=== PATIENT | female | born 1960 | race Caucasian/White ===

== ENCOUNTER 2018-03-18 01:49 | Emergency (ER) | payer BC ==
[~2018-03-18] VITALS: Ht 160 cm; Wt 100.2 kg
[2018-03-18 02:11] VITALS: BP 145/78
--- NOTE | 2018-03-18 02:16 | Emergency Room Report ---
History of Present Illness General Chief Complaint: Laceration Source: Patient Present Illness HPI Pt. stepped on glass six days ago and it has been difficult to walk. She is improving and now can walk. No fever. No other injury. Allergies: Coded Allergies: No Known Allergies (Unverified , 03/18/18) Patient History Now: No Nursing Documentation-[facility] Past Medical History: No Stated History Review of Systems Musculoskeletal: Reports: see HPI All Other Systems: limited Physical Exam Vital Signs Date Time Temp Pulse Resp B/P (MAP) Pulse Ox O2 Delivery O2 Flow Rate FiO2 03/18/18 02:04 97.8 85 18 145/78 98 Room Air 97.9 General Appearance: well appearing, no apparent distress Head: normocephalic, atraumatic ENT: hearing grossly normal, normal voice Neck: full range of motion, supple Respiratory: no respiratory distress, speaking full sentences Musculoskeletal: other - right foot: there is some missing skin, plantar surface right fifth metatarsal Neurologic: alert, normal gait Psychiatric: mood/affect normal Skin: no rash Medical Decision Making Diagnostic Impression: Primary Impression: Laceration ER Course healing, no signs of cellulitis encouraged to soak 10 minutes warm/hot water 2x/day OK to return to work Last Vital Signs Date Time Temp Pulse Resp B/P (MAP) Pulse Ox O2 Delivery O2 Flow Rate FiO2 03/18/18 02:04 97.8 85 18 145/78 98 Room Air 97.9 Status: unchanged Disposition: HOME, SELF-CARE Patient Instructions: Nonsutured Laceration Care Noe Fraire M.D. Mar 18, 2018 02:16
[2018-03-18 03:02] VITALS: BP 145/78
== END 2018-03-18 03:02 | disposition home or self-care (01) ==
LOC: EMR 02:15
DX: S91.311A Laceration without foreign body, right foot, initial encounter (principal); W22.8XXA Striking against or struck by other objects, initial encounter; Y93.89 Activity, other specified; Y92.9 Unspecified place or not applicable
CPT/HCPCS: 99282

== ENCOUNTER 2018-12-23 03:26 | Emergency (ER) | payer BC ==
[~2018-12-23] VITALS: Ht 160 cm; Wt 113.4 kg
[2018-12-23 03:38] VITALS: BP 149/84
--- NOTE | 2018-12-23 03:40 | NUR ---
ED Nurse Note: Pt walkd in c/o meniere's disease episode, pt states she had it for about three wks, initially had nausea, vomiting, and dizziness with earache, pt states the episode is at the end, denies pain at this time. vss, ambulatory w/ steady gait, will cont monitor.
[2018-12-23] MEDS ORDERED: HYDROCHLOROTHIA25 MG ORAL (03:49)
--- NOTE | 2018-12-23 03:49 | Emergency Room Report ---
History of Present Illness General Chief Complaint: Earache Source: Patient Present Illness HPI Is a 58-year-old female with a history of Mnire's disease. This is a infrequent attack. She had tach that was very severe. Is incapacitated her for about a month. Localized to the right ear. She felt like fullness in her ear and make her very dizzy. She felt better now. She came in for recheck and clearance for work. She denies any fever chills but no nausea no vomiting. She said the last year her blood pressure been running systolic 140s. Allergies: Coded Allergies: No Known Allergies (Unverified , 03/18/18) Patient History Past Medical History: see triage record, old chart reviewed Past Surgical History: none Pertinent Family History: none Social History: Denies: smoking Now: No : 2 Para: 2 Immunizations: other Reviewed Nursing Documentation: PMH: Agreed; PSxH: Agreed Nursing Documentation-PMH Past Medical History: No History, Except For Hx Asthma: Yes Hx Neurological Problems: No - Meniere's disease Review of Systems Eye: Denies: eye pain, blurred vision ENT: Denies: ear pain, nose congestion, throat swelling Respiratory: Denies: cough, shortness of breath Cardiovascular: Denies: chest pain, palpitations Gastrointestinal: Denies: abdominal pain, diarrhea, nausea, vomiting Musculoskeletal: Denies: back pain, joint pain Skin: Denies: rash Neurological: Denies: headache, numbness Endocrine: Denies: increased thirst, increased urine Hematologic/Lymphatic: Denies: easy bruising All Other Systems: negative except mentioned in HPI Physical Exam Vital Signs Date Time Temp Pulse Resp B/P (MAP) Pulse Ox O2 Delivery O2 Flow Rate FiO2 12/23/18 03:28 98.1 72 18 149/84 (105) 96 Room Air Vitals with high blood pressure Sp02 EP Interpretation: reviewed, normal General Appearance: well appearing, no apparent distress, alert Head: normocephalic, atraumatic Eyes: bilateral eye PERRL, bilateral eye EOMI ENT: hearing grossly normal, normal pharynx Neck: full range of motion, supple, no meningismus Respiratory: chest non-tender, lungs clear, normal breath sounds Cardiovascular #1: regular rate, rhythm, no murmur Gastrointestinal: normal bowel sounds, non tender, no mass, no organomegaly, no bruit, non-distended Musculoskeletal: back normal, gait/station normal, normal range of motion Psychiatric: mood/affect normal Medical Decision Making Diagnostic Impression: Primary Impression: Meniere's disease Qualified Codes: H81.01 - Meniere's disease, right ear Additional Impression: Hypertension Qualified Codes: I10 - Essential (primary) hypertension ER Course This patient presents with Mnire's disease which improved greatly already. She cleared to go back to work. Her blood pressure been persistent in the 140 systolic for the last year. We will go ahead and put her on antihypertensive medication. Will discharge home. Last Vital Signs Date Time Temp Pulse Resp B/P (MAP) Pulse Ox O2 Delivery O2 Flow Rate FiO2 12/23/18 03:38 98.1 95 18 149/84 96 Room Air Status: unchanged Disposition: HOME, SELF-CARE Condition: Stable Scripts Hydrochlorothiazide* (HYDROCHLOROTHIAZIDE*) 25 Mg Tablet 25 MG ORAL DAILY, #90 TAB Prov: Ezra Smallwood MD 12/23/18 Referrals: NOT CHOSEN IPA/,REFERRING (PCP) Additional Instructions: Follow up with your doctor in 7 days. Return if symptoms worsen. Ezra Smallwood MD Dec 23, 2018 03:49
--- NOTE | 2018-12-23 03:56 | NUR ---
ED Nurse Note: pt cleared to be d/c per ERMD, pt discharge and aftercare instruction provided w/ prescription, pt advised to follow up with pcp or return to ed if changes in condition, vss, ambulatory w/ steady gait, left w/ all belongings.
[2018-12-23 03:57] VITALS: BP 149/84
== END 2018-12-23 03:57 | disposition home or self-care (01) ==
LOC: EMR 03:39
DX: H81.01 Meniere's disease, right ear (principal); I10 Essential (primary) hypertension
CPT/HCPCS: 99282

== ENCOUNTER 2019-05-26 01:45 | Emergency (ER) | payer BC ==
[~2019-05-26] VITALS: Ht 162.6 cm; Wt 108.9 kg
[~2019-05-26 01:45] MED LIST: HYDROCHLOROTHIA25 MG ORAL
[2019-05-26 02:07] VITALS: BP 135/52
--- NOTE | 2019-05-26 02:13 | Emergency Room Report ---
History of Present Illness General Chief Complaint: Allergic Reaction Source: Patient Present Illness HPI Disclaimer: Please note that this report is being documented using [employer] technology. This can lead to erroneous entry secondary to incorrect interpretation by the dictating instrument. HPI: 51-year-old female with a history of hypertension presents for evaluation of rash. 4 days ago the patient was switched from hydrochlorothiazide to triamterene-HCTZ combo by her PMD. Over the past 2 days she has had a diffuse pruritic rash over her abdomen and now spreading to the legs. Also complains of pain and hypersensitivity to the skin when her clothes touch. Denies shortness of breath, wheezing, vomiting, diarrhea. Notes worsening swelling of the lower extremities since being switched from hydrochlorothiazide. Denies chest pain. Denies skin breakdown, bruising, bleeding. No other exposures or recent changes in detergents, clothes, cleaning products. PMH: Hypertension, hyperlipidemia, obesity, hypothyroidism PSH: Total knee replacement, gastric sleeve Allergies: No known allergens Social Hx: Denies alcohol or drug abuse Allergies: Coded Allergies: No Known Allergies (Unverified , 03/18/18) Nursing Documentation-PMH Hx Asthma: Yes Hx Neurological Problems: No - Meniere's disease Review of Systems All Other Systems: negative except mentioned in HPI Physical Exam Vital Signs Date Time Temp Pulse Resp B/P (MAP) Pulse Ox O2 Delivery O2 Flow Rate FiO2 05/26/19 01:54 18 Room Air General: Awake and alert, no acute distress HEENT: NC/AT. EOMI. No stridor, no tongue edema, no edema of the pharynx Cardiovascular: RRR. S1 and S2 normal. No murmur appreciated Resp: Normal work of breathing. No cough, wheezing or crackles appreciated Abdomen: Abdomen is soft, nondistended. Nontender Skin: There is a diffuse erythematous, lacy and somewhat vesicular rash over the patient's abdomen. Nikolsky negative. No bleeding, no purulence, no desquamation, no ulcerations. MSK: Normal tone and bulk. Moving all extremities. No obvious deformity. Neuro: Awake and alert. Mentating appropriately. Medical Decision Making Diagnostic Impression: Primary Impression: Drug reaction ER Course 58-year-old female presents for evaluation of itchy and painful rash over her abdomen after switching from hydrochlorothiazide to triamterene-HCTZ combo ( Maxide) last week by her PMD. Patient shows no clinical signs of anaphylaxis. No evidence of angioedema, Chow-Boone's, TEN, SSSS. Likely a drug reaction. Will treat with H1 and H2 blockers in the emergency department. Her airway is clear, no wheezing, no stridor no oral edema. She has an appointment next week with her PMD for reevaluation. I have instructed her to discontinue this new medication and to call her doctor first thing in the morning. We will continue Benadryl, famotidine. Discontinue Maxide and refill her hydrochlorothiazide for the week until she can see her PMD. We discussed reasons to return to the emergency department. She understands and agrees with this treatment plan will be discharged Last Vital Signs Date Time Temp Pulse Resp B/P (MAP) Pulse Ox O2 Delivery O2 Flow Rate FiO2 05/26/19 01:54 18 Room Air Disposition: HOME, SELF-CARE Condition: Stable Scripts Famotidine* (Pepcid 20mg tablet*) 20 Mg Tablet 20 MG ORAL DAILY, #30 TAB 0 Refills Prov: Dany Barillas MD 05/26/19 Diphenhydramine Hcl (BENADRYL ALLERGY) 25 Mg Tablet 25 MG PO Q6H for 5 Days, #30 TAB Prov: Dany Barillas MD 05/26/19 Hydrochlorothiazide* (HYDROCHLOROTHIAZIDE*) 25 Mg Tablet 25 MG ORAL DAILY, #14 TAB Prov: Dany Barillas MD 05/26/19 Dany Barillas MD May 26, 2019 02:13
[2019-05-26 02:16] VITALS: BP 135/52
--- NOTE | 2019-05-26 02:19 | NUR ---
ER Nurse Note: Pt walked in c/o skin rash, itchiness and pain after taking Trimethicone 37.5, HCL 25mg. Pt stated she started taking med 05/24. Pt noticed bilateral lower extremity swelling. Per pt, pt stated was prescribed hydrochlorothiazide and took the whole course without reactions and was switched to trimethicone. Pt stated she gained 16 lbs in 10 days after starting the new medication and noticed a body reaction with edema in the lower extriemities. ERMD at pt side; [facility]
[2019-05-26] MEDS ORDERED: [UNRECOGNIZED DRUG - OTHER] PO (02:23)
[2019-05-26] MEDS ORDERED: HYDROCHLOROTHIA25 MG ORAL ×3 (02:32→02:49)
[2019-05-26] MEDS ORDERED: BENADRYL ALLERG25 M1 PO ×3 (02:32→02:49)
[2019-05-26] MEDS ORDERED: FAMOTIDINE20 MG ORAL ×3 (02:32→02:49)
[2019-05-26 02:40] VITALS: BP 135/52
--- NOTE | 2019-05-26 02:40 | NUR ---
ER Nurse Note: Pt seen, treated, cleared to be discharged per ERMD. Discharge instructions given with repeat verbalization by pt. Encouraged pt follow up with primary care doctor within one week. Pt is aox4, on room air, with stable vital signs, no signs of distress. ID band removed. Pt is able to ambulate with steady gait. pt took all belongings; meds sent to pharmacy of pt choice.
== END 2019-05-26 02:40 | disposition home or self-care (01) ==
LOC: EMR 01:58
DX: T50.2X5A Adverse effect of carbonic-anhydrase inhibitors, benzothiadiazides and other diuretics, initial encounter (principal); Y92.9 Unspecified place or not applicable; I10 Essential (primary) hypertension; E78.5 Hyperlipidemia, unspecified; E03.9 Hypothyroidism, unspecified; Z96.659 Presence of unspecified artificial knee joint; Z98.84 Bariatric surgery status
CPT/HCPCS: 99282